=== PATIENT | female | born 1960 | race Caucasian/White ===

== ENCOUNTER 2025-02-27 14:55 | Emergency (ER) | payer OTHER, SELFPAY ==
[2025-02-27 14:58] VITALS: BP 171/95
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
[2025-02-27] MEDS: TYLENOL 650 MG PO (15:50)
[2025-02-27 16:31] LABS: Hematocrit 33.9 % (37.0-47.0); Hemoglobin 11.0 g/dL (12.0-16.0); Mean Corp Hgb Conc. 32.4 g/dL (33.0-37.0); Mean Corpuscular Volume 84.1 fL (81.0-99.0); Nucleated Red Blood Cells % 0 %; Platelet Count 121 10^3/uL (130-400); Red Cell Dist. Width 13.5 % (11.5-14.5)
[2025-02-27 16:49] LABS: ALT (SGPT) 14 U/L (0-35); AST (SGOT) 21 U/L (14-36); Albumin 4.2 g/dl (3.5-5.0); Alkaline Phosphatase 61 U/L (38-126); Blood Urea Nitrogen 32 mg/dl (7-17); Calcium 9.2 mg/dl (8.4-10.2); Carbon Dioxide 18 mmol/L (22-30); Chloride 104 mmol/L (98-107); Glucose 77 mg/dl (70-99); Potassium 4.1 mmol/L (3.5-5.1); Sodium 138 mmol/L (135-145); Total Protein 6.8 g/dl (6.3-8.2); eGFR 50.86
--- NOTE | 2025-02-27 19:00 | EDRN ---
Report received, introduced myself to patient who is resting, 1:1 maintained, crisis is working on placement.
--- NOTE | 2025-02-27 20:00 | EDRN ---
Patient asking about something to eat, was provided with lunch box and drink.
[2025-02-27 20:47] LABS: Urine Character Cloudy (Clear)
--- NOTE | 2025-02-27 21:00 | EDRN ---
Patient asking for something to help with anxiety spoke with provider who ordered benadryl
[2025-02-27 21:02] LABS: Urine Red Blood Cell 70-80 /HPF (0-2); Urine Urothelial Cell 0-2 /LPF (FEW); Urine White Cell 80-90 /HPF (0-5)
[2025-02-27] MEDS: BENADRYL 25 MG PO (21:20)
--- NOTE | 2025-02-27 22:01 | EDRN ---
Crisis called patient to be picked up around [id number], patient remains in safe environment with 1:[address]
== END 2025-02-28 00:44 ==
LOC: EMR 14:55
PROVIDERS: Physician Assistant Medical; EMERGENCY PHYSICIAN Student in an Organized Health Care Education/Training Program; FAMILY PHYSICIAN Internal Medicine
DX: F32.A Depression, unspecified (principal); R45.851 Suicidal ideations; Z59.11 Inadequate housing environmental temperature; Z59.12 Inadequate housing utilities; Z65.4 Victim of crime and terrorism; Z63.4 Disappearance and death of family member; Z94.0 Kidney transplant status
CPT/HCPCS: 99285; 80053; 80306; 81003; 81015; 85025; 87086; 93005